=== PATIENT | male | born 1945 | race Caucasian/White ===

== ENCOUNTER 2016-05-13 09:07 | Inpatient (IN) | payer MEDICARE, OTHER ==
[2016-05-13] VITALS (12 sets, daily range): BP systolic 106–131; BP diastolic 69–77; PULSE 67–146; RESP 15–22; TEMP 97–98.1; O2SAT 94–98
[~2016-05-13] VITALS: Ht 177.8 cm; Wt 92.0 kg
[2016-05-13] MEDS ORDERED: SODIUM CHLOR 0.9% 1000 ML INJ 1,000 ML IV SCH (10:15)
[2016-05-13] MEDS ORDERED: ADENOSINE IV SOLN 3 MG/ML 2 ML VIAL IV PUSH ONE ×2 (10:15)
[2016-05-13] MEDS ORDERED: PERSERVISION AREDS (10:16)
[2016-05-13] MEDS ORDERED: AMLO1TAB35 PO (10:16)
[2016-05-13] MEDS ORDERED: LUMI0.01 EACH EYE (10:16)
[2016-05-13] MEDS ORDERED: CENTTAB PO (10:16)
[2016-05-13] MEDS ORDERED: COMB0.2S EACH EYE (10:16)
[2016-05-13] MEDS ORDERED: ASPI81CH CHEW (10:16)
[2016-05-13] MEDS ORDERED: FISH1000 (10:16)
[2016-05-13] MEDS ORDERED: AZOP1SUS EACH EYE (10:16)
[2016-05-13] MEDS ORDERED: PRESCAP5 PO (10:27)
[2016-05-13] MEDS ORDERED: DILTIAZEM INJ 125 MG in SODIUM CHLORIDE 0.9% INJ 100 ML IV SCH (10:30)
[2016-05-13] MEDS ORDERED: DILTIAZEM HCL 25 MG/5 ML VIAL IVP ONE (10:30)
--- NOTE | 2016-05-13 10:46 | RADRPT ---
EXAM DATE/TIME: 05/13/2016 10:38 [place] COMPARISON: No previous studies available for comparison. INDICATIONS : Tachycardia. MEDICAL HISTORY : Hypertension. Carcinoma, prostatic. SURGICAL HISTORY : None. ENCOUNTER: Initial ACUITY: 3 days PAIN SCORE: 0/10 LOCATION: Bilateral chest FINDINGS: A single view of the chest demonstrates the lungs to be symmetrically aerated without evidence of mas s, infiltrate or effusion. The cardiomediastinal contours are unremarkable. Osseous structures are intact. CONCLUSION: 1. No acute cardiopulmonary findings. Aiden Javier MD on May 13, 2016 at 10:40 Board Certified Radiologist. This report was verified electronically.
[2016-05-13 10:51] LABS: AUTOMATED NEUTROPHIL # 3.1 TH/MM3 (1.8-7.7); BASOPHIL # 0.1 TH/MM3 (0-0.2); BASOPHIL % 0.7 % (0.0-2.0); EOSINOPHIL # 0.3 TH/MM3 (0-0.4); EOSINOPHIL % 2.9 % (0.0-4.0); HEMATOCRIT 43.9 % (39.0-51.0); HEMO FLAGS DIFF FINAL; LYMPH % 51.1 % (9.0-44.0); LYMPHOCYTE # 4.6 TH/MM3 (1.0-4.8); MEAN CELL VOLUME 97.7 FL (80.0-100.0); MEAN CORPUSCULAR HEMOGLOBIN 32.9 PG (27.0-34.0); MEAN CORPUSCULAR HGB CONC 33.7 % (32.0-36.0); MONO % 11.3 % (0.0-8.0); PLATELET COUNT 201 TH/MM3 (150-450); RED BLOOD COUNT 4.49 MIL/MM3 (4.50-5.90); RED CELL DISTRIBUTION WIDTH 14.1 % (11.6-17.2)
[2016-05-13 10:58] LABS: PROTHROMBIN TIME - PATIENT 10.7 SEC (9.8-11.6)
[2016-05-13 10:59] LABS: APTT (PATIENT) 23.6 SEC (24.3-30.1)
--- NOTE | 2016-05-13 10:59 | PD ---
HPI Chief Complaint: Cardiac Complaint Time Seen by Provider: 09:52 Travel History International Travel<30 days: No Contact w/Intl Traveler<30days: No Traveled to known affect area: No History of Present Illness HPI 70-year-old male complains of fast heart rate. Patient states that he has increasing heart rate for the past 3 days. Patient denies any chest pain or shortness of breath. Patient denies any thyroid disease. Patient denies any excessive caffeine intake. Patient has history hypertension and glaucoma. Patient is on medication for them. Patient denies history of diabetes or dyslipidemia. Patient is a nonsmoker. PFSH Past Medical History Cancer: Yes (PROSTATE) Glaucoma: Yes Hypertension: Yes Tetanus Vaccination: > 5 Years Social History Alcohol Use: Yes (daily) Tobacco Use: No Substance Use: No Allergies-Medications (Allergen,Severity, Reaction): Coded Allergies: No Known Allergies (Unverified , 05/13/16) Reported Meds & Prescriptions Reported Meds & Active Scripts Active Reported Preservision Areds 2 (Multiple Vitamins W/ Minerals) 1 Cap 1 Cap PO BID Centrum Silver (Multiple Vitamins W/ Minerals) 1 Tab 1 Tab PO DAILY Aspirin 81 Mg Chew 81 Mg CHEW DAILY Fish Oil ([place]-3 Fatty Acids) 1,000 Mg Cap 4,000 Lumigan Opth Drops (Bimatoprost) 0.01% Soln 1 Drop EACH EYE HS Combigan Opth Drops (Brimonidine-Timolol Opth Drops) 0.2-0.5% Soln 1 Drop EACH EYE Q12HR Azopt Opth Drops (Brinzolamide) 1% Susp 1 Drop EACH EYE BID Amlodipine-Atorvastatin 5-10 Mg Tab 1 Tab PO DAILY Review of Systems General / Constitutional: No: Fever Eyes: No: Visual changes HENT: No: Headaches Cardiovascular: Positive: Tachycardia, No: Chest Pain or Discomfort Respiratory: No: Shortness of Breath Gastrointestinal: No: Abdominal Pain Genitourinary: No: Dysuria Musculoskeletal: No: Pain Skin: No Rash Neurologic: No: Weakness Psychiatric: No: Depression Endocrine: No: Polydipsia Hematologic/Lymphatic: No: Easy Bruising Physical Exam Narrative GENERAL: Well-nourished, well-developed patient. SKIN: Warm and dry. HEAD: Normocephalic. EYES: No scleral icterus. No injection or drainage. NECK: Supple, trachea midline. No JVD or lymphadenopathy. CARDIOVASCULAR: Tachycardia rate and rhythm without murmurs, gallops, or rubs. RESPIRATORY: Breath sounds equal bilaterally. No accessory muscle use. GASTROINTESTINAL: Abdomen soft, non-tender, nondistended. MUSCULOSKELETAL: No cyanosis, or edema. BACK: Nontender without obvious deformity. No CVA tenderness. Neurologic exam normal. Data Data Last Documented VS Vital Signs Date Time Temp Pulse Resp B/P Pulse Ox O2 Delivery O2 Flow Rate FiO2 05/13/16 11:34 98 05/13/16 09:09 98.1 146 15 131/74 Orders Electrocardiogram (05/13/16 ) Complete Blood Count With Diff (05/13/16 10:07) Basic Metabolic Panel (Bmp) (05/13/16 10:07) Creatine Kinase (Cpk) (05/13/16 10:07) Troponin I (05/13/16 10:07) Prothrombin Time / Inr (Pt) (05/13/16 10:07) Act Partial Throm Time (Ptt) (05/13/16 10:07) Thyroid Stimulating Hormone (05/13/16 10:07) Chest, Single Ap (05/13/16 10:07) Iv Access Insert/Monitor (05/13/16 10:07) Ecg Monitoring (05/13/16 10:07) Oximetry (05/13/16 10:07) Sodium Chlor 0.9% 1000 Ml Inj (Ns 1000 M (05/13/16 10:15) Adenosine Inj (Adenocard Inj) (05/13/16 10:15) Adenosine Inj (Adenocard Inj) (05/13/16 10:15) Vital Signs (Adult) Q15MX4,Q4H (05/13/16 10:27) Cardiac Rhythm UNIQUE.Q8H (05/13/16 10:27) ^ Notify Dr: Other (05/13/16 10:27) Diltiazem Inj (Cardizem Inj) (05/13/16 10:30) Diltiazem Inj (Cardizem Inj) (05/13/16 10:30) Electrocardiogram (05/13/16 ) Labs Laboratory Tests Test 05/13/16 10:15 White Blood Count 9.0 TH/MM3 Red Blood Count 4.49 MIL/MM3 Hemoglobin 14.8 GM/DL Hematocrit 43.9 % Mean Corpuscular Volume 97.7 FL Mean Corpuscular Hemoglobin 32.9 PG Mean Corpuscular Hemoglobin 33.7 % Concent Red Cell Distribution Width 14.1 % Platelet Count 201 TH/MM3 Mean Platelet Volume 8.3 FL Neutrophils (%) (Auto) 34.0 % Lymphocytes (%) (Auto) 51.1 % Monocytes (%) (Auto) 11.3 % Eosinophils (%) (Auto) 2.9 % Basophils (%) (Auto) 0.7 % Neutrophils # (Auto) 3.1 TH/MM3 Lymphocytes # (Auto) 4.6 TH/MM3 Monocytes # (Auto) 1.0 TH/MM3 Eosinophils # (Auto) 0.3 TH/MM3 Basophils # (Auto) 0.1 TH/MM3 CBC Comment DIFF FINAL Differential Comment Prothrombin Time 10.7 SEC Prothromb Time International 1.0 RATIO Ratio Activated Partial 23.6 SEC Thromboplast Time Sodium Level 141 MEQ/L Potassium Level 4.7 MEQ/L Chloride Level 110 MEQ/L Carbon Dioxide Level 24.4 MEQ/L Anion Gap 7 MEQ/L Blood Urea Nitrogen 18 MG/DL Creatinine 0.90 MG/DL Estimat Glomerular Filtration 83 ML/MIN Rate Random Glucose 111 MG/DL Calcium Level 9.0 MG/DL Total Creatine Kinase 132 U/L Troponin I 0.12 NG/ML Thyroid Stimulating Hormone 2.160 uIU/ML [address] [place] [address] Medical Decision Making Medical Screen Exam Complete: Yes Emergency Medical Condition: Yes Interpretation(s) EKG shows supraventricular tachycardia at rate 147. 11:53 AM. Repeat EKG showed atrial fibrillation. Last Impressions Chest X-Ray 05/13/16 1007 Signed Impressions: Service Date/Time: Friday, May 13, 2016 10:38 - CONCLUSION: 1. No acute cardiopulmonary findings. Aiden Javier MD 11:54 AM. CBC within normal limit. BMP within normal limit. Troponin 0.12. TSH normal. Differential Diagnosis Differential diagnosis including supraventricular tachycardia, atrial fibrillation, atrial flutter. Narrative Course 70-year-old male with tachycardia for 3 days. Adenosine 6 mg IV and adenosine 12 mg IV given without success. Normal saline solution 1 25 cc an hour. Cardizem 10 mg IV. Cardizem drip started. Repeat EKG show atrial fibrillation. Diagnosis Primary Impression: Atrial fibrillation with RVR Admitting Information Admitting Physician Requests: Admit Ren Sawyer MD May 13, 2016 10:59
[2016-05-13 11:12] LABS: BICARBONATE 24.4 MEQ/L (21.0-32.0)
[2016-05-13 11:13] LABS: POTASSIUM 4.7 MEQ/L (3.5-5.1)
--- NOTE | 2016-05-13 13:41 | HHI.HP ---
[facility] Service Family Medicine Primary Care Physician Non-Staff Admission Diagnosis new-onset atrial fibrillation with RVR Diagnoses: International Travel<30 Days: No Contact w/Intl Traveler<30days: No Known Affected Area: No History of Present Illness Patient is 70-year-old man with past medical history significant for hypertension and prostate cancer in remission who presents with racing heart for 3 days. Patient first noticed that he was in his usual state of health on Monday when he took his daily morning blood pressure, and noticed that his pulse was more rapid than usual, around 120-130 bpm rather than his usual 72-74 bpm. He denies any associated symptoms, including chest pain, shortness of breath, palpitations, but he reports that he felt a somehow different and was unable to describe how he felt different. He denies any recent illness or thyroid problems. He has never had anything like this before. He proceeded to play golf for the past 2 days prior to presentation. The night before presentation to the ED, he felt that his heart was racing, so he decided to come to the emergency department the following morning, where he was noted to have tachyarrhythmia. (Duane Meraz MD R1) Review of Systems Constitutional: DENIES: Diaphoretic episodes, Fatigue, Fever, Chills, Dizziness , Change in appetite, Night Sweats Endocrine: DENIES: Polydipsia, Polyuria Eyes: DENIES: Blurred vision, Diplopia, Vision loss, Double Vision Ears, nose, mouth, throat: DENIES: Hearing loss, Throat pain, Running Nose Respiratory: DENIES: Cough, Wheezing, Shortness of breath Cardiovascular: DENIES: Chest pain, Palpitations, Syncope, Dyspnea on Exertion , PND, Lower Extremity Edema, Orthopnea Gastrointestinal: DENIES: Abdominal pain, Black stools, Bloody stools, Constipation, Diarrhea, Nausea, Vomiting Genitourinary: DENIES: Dysuria Musculoskeletal: DENIES: Joint pain, Muscle aches, Back pain, Neck pain Integumentary: DENIES: Rash Neurologic: DENIES: Headache, Localized weakness, Paresthesias (Duane Meraz MD R1) Past Family Social History Past Medical History 2 years ago, patient was diagnosed with Prostate Cancer. Treated at [facility] in [place] with Palladium seeds and stereotactic radiation. Last PSA 0.6 HTN, HLD treated years ago. His PCP and application performance engineer was Dr. Elroy Mora. s/p right hip replacement, his bp went down. He was on losartan, but has not required this medication since surgery in October 2015. Now he's only on one blood pressure medication. Denies any history of CAD, ID, DM. Patient reports history of glaucoma controlled with eyedrop medications. Past Surgical History Right Hip replacement in October 2015. Left hip replacement 11 years ago. Reported Medications Reported Meds & Active Scripts Active Reported Preservision Areds 2 (Multiple Vitamins W/ Minerals) 1 Cap 1 Cap PO BID Centrum Silver (Multiple Vitamins W/ Minerals) 1 Tab 1 Tab PO DAILY Aspirin 81 Mg Chew 81 Mg CHEW DAILY Fish Oil ([place]-3 Fatty Acids) 1,000 Mg Cap 4,000 Lumigan Opth Drops (Bimatoprost) 0.01% Soln 1 Drop EACH EYE HS Combigan Opth Drops (Brimonidine-Timolol Opth Drops) 0.2-0.5% Soln 1 Drop EACH EYE Q12HR Azopt Opth Drops (Brinzolamide) 1% Susp 1 Drop EACH EYE BID Amlodipine-Atorvastatin 5-10 Mg Tab 1 Tab PO DAILY (Duane Meraz MD R1) Allergies: Coded Allergies: No Known Allergies (Unverified , 05/13/16) Active Ordered Medications Current Medications Medications (Trade) Dose Ordered Sig/Jose Juan Route Start Time Stop Time Status Last Admin (Cardizem Inj/NS Inj) 125 ml @ 0 mls/hr TITRATE IV 05/13/16 10:30 05/13/16 20:24 (Aspirin Chew) 81 mg DAILY CHEW 05/13/16 14:00 (NS Flush) 2 ml UNSCH PRN FLUSH 05/13/16 14:00 (NS Flush) 2 ml BID FLUSH 05/13/16 21:00 (Tylenol) 650 mg Q4H PRN PO 05/13/16 14:00 (Zofran Inj) 4 mg Q6H PRN IVP 05/13/16 14:00 (Narcan Inj) 0.4 mg UNSCH PRN IV 05/13/16 14:00 (Xalatan 0.005% Opth Soln) 1 drop HS EACH EYE 05/13/16 21:00 05/13/16 21:57 (Alphagan 0.2% Opth Soln) 1 drop Q12H EACH EYE 05/13/16 21:00 05/13/16 21:57 (Timoptic 0.5% Opth Soln) 1 drop Q12H EACH EYE 05/13/16 21:00 05/13/16 21:57 (Norvasc) 5 mg DAILY PO 05/14/16 09:00 (Lipitor) 10 mg DAILY PO 05/14/16 09:00 Patient Own Medication PT OWN MED: AZOPT 1% OP... Q12H EACH EYE 05/13/16 21:00 Hold (Cardizem) 30 mg QID PO 05/13/16 18:00 05/13/16 21:32 Family History Father had angina, of ID. Mother no health problems. at 92. 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 (Duane Meraz MD R1) Physical Exam Vital Signs Vital Signs Date Time Temp Pulse Resp B/P Pulse Ox O2 Delivery O2 Flow Rate FiO2 05/13/16 11:34 98 05/13/16 09:09 98.1 146 15 131/74 95 Physical Exam GENERAL: This is a well-nourished, well-developed patient, in no apparent distress. SKIN: No rashes, ecchymoses or lesions. Cool and dry. HEAD: Atraumatic. Normocephalic. EYES: Pupils equal round and reactive. Extraocular motions intact. + injection, but no drainage. ENT: Nose without bleeding, purulent drainage. Throat without erythema, tonsillar hypertrophy or exudate. Uvula midline. Airway patent. NECK: Trachea midline. No thyromegaly, JVD or lymphadenopathy. Supple, nontender , no meningeal signs. CARDIOVASCULAR: Regular rate and rhythm without murmurs, gallops, or rubs. RESPIRATORY: Clear to auscultation. Breath sounds equal bilaterally. No wheezes , rales, or rhonchi. GASTROINTESTINAL: Abdomen soft, non-tender, nondistended. No hepato-splenomegaly , or palpable masses. No guarding. MUSCULOSKELETAL: Extremities without clubbing, cyanosis, or edema. No joint tenderness, effusion, or edema noted. No calf tenderness. NEUROLOGICAL: Awake and alert. Cranial nerves II through XII grossly intact. Motor and sensory grossly within normal limits. Normal speech. Laboratory Laboratory Tests Test 05/13/16 10:15 White Blood Count 9.0 Red Blood Count 4.49 Hemoglobin 14.8 Hematocrit 43.9 Mean Corpuscular Volume 97.7 Mean Corpuscular Hemoglobin 32.9 Mean Corpuscular Hemoglobin 33.7 Concent Red Cell Distribution Width 14.1 Platelet Count 201 Mean Platelet Volume 8.3 Neutrophils (%) (Auto) 34.0 Lymphocytes (%) (Auto) 51.1 Monocytes (%) (Auto) 11.3 Eosinophils (%) (Auto) 2.9 Basophils (%) (Auto) 0.7 Neutrophils # (Auto) 3.1 Lymphocytes # (Auto) 4.6 Monocytes # (Auto) 1.0 Eosinophils # (Auto) 0.3 Basophils # (Auto) 0.1 CBC Comment DIFF FINAL Differential Comment Prothrombin Time 10.7 Prothromb Time International 1.0 Ratio Activated Partial 23.6 Thromboplast Time Sodium Level 141 Potassium Level 4.7 Chloride Level 110 Carbon Dioxide Level 24.4 Anion Gap 7 Blood Urea Nitrogen 18 Creatinine 0.90 Estimat Glomerular Filtration 83 Rate Random Glucose 111 Calcium Level 9.0 Total Creatine Kinase 132 Troponin I 0.12 Thyroid Stimulating Hormone 2.160 3rd Gen (Duane Meraz MD R1) Result Diagram: 05/13/16 1015 05/13/16 1015 Imaging Last Impressions Chest X-Ray 05/13/16 1007 Signed Impressions: Service Date/Time: Friday, May 13, 2016 10:38 - CONCLUSION: 1. No acute cardiopulmonary findings. Aiden Javier MD Course In emergency department, patient had EKG, chest x-ray, TSH, a PTT, PT/INR, troponin, CK, BMP, CBC, adenosine 12 mg IV 1, adenosine 6 mg IV 1, normal saline IV 1, diltiazem IV and IV drip, cardiology consult. (Duane Meraz MD R1) Assessment and Plan Assessment and Plan Patient is a 70-year-old man with a past history of hypertension controlled on medication and prostate cancer in remission who presents with new onset A. fib with RVR. Code Status Full code Discussed Condition With kulwant Elkins, Dr. Nolan (Duane Meraz MD R1) Attending Attestation The patient has been seen and examined. The chart and all resident notes have been reviewed. I agree that inpatient care is appropriate and that a two midnight stay is expected for the reasons documented in the resident history and physical. I have discussed this with the resident and certify the resident s order for inpatient admission. (Bernice Nolan MD) Problem List: (1) Atrial fibrillation with RVR Status: Acute Plan: Patient is a 70-year-old man with a past history of hypertension controlled on medication and prostate cancer in remission who presents with new onset A. fib with RVR. TRISTIAN VASC score of 1pt. Admit to inpatient ACS rule out with every 6 hours EKG, CK, troponin Echocardiogram Consult cardiology Nothing by mouth after midnight BMP, CBC every morning TSH wnl Diltiazem IV drip Transition to Diltiazem 30 mg by mouth 4 times a day Medical management of risk factors as below: Aspirin 81 mg chew by mouth daily manager sas/unit tender Vital signs Oxygen as needed PT consult (2) Glaucoma Status: Acute Plan: Patient with history of glaucoma stable on home medication. Continue home medications as below: Continue home eyedrops (3) HTN (hypertension) Status: Chronic Plan: Patient with hypertension controlled on medications. Converted home medications to our formulary as below: Hold Amlodipine 5 mg by mouth daily because we are starting Diltiazem and do not want to cause hypotension (4) HLD (hyperlipidemia) Status: Chronic Plan: Patient with hyperlipidemia stable on home medications. Reported home medications were formulary as below: Hold Atorvastatin 10 g by mouth daily (5) Nutrition, metabolism, and development symptoms Status: Acute Plan: Fluids: Maintenance fluids with Normal saline IV at 130 mL per hour Electrolytes: Monitor and replete as necessary Nutrition: Nothing by mouth after midnight GI prophylaxis: Not currently indicated (6) No contraindication to deep vein thrombosis (DVT) prophylaxis Status: Acute Plan: Anticoagulation per cardiology. Bilateral SCDs (Duane Meraz MD R1) Physician Certification 2 Midnight Certification Type: Admission for Inpatient Services Order for Inpatient Services The services are ordered in accordance with Medicare regulations or non- Medicare payer requirements, as applicable. In the case of services not specified as inpatient-only, they are appropriately provided as inpatient services in accordance with the 2-midnight benchmark. Estimated LOS (days): 2 2 days is the estimated time the patient will need to remain in the hospital, assuming treatment plan goals are met and no additional complications. Post-Hospital Plan: Not yet determined (Duane Meraz MD R1) Duane Meraz MD R1 May 13, 2016 13:41 Bernice Nolan MD May 17, 2016 12:32
[2016-05-13] MEDS ORDERED: ACETAMINOPHEN 325 MG TAB PO PRN (14:00)
[2016-05-13] MEDS ORDERED: ONDANSETRON HCL 4 MG/2 ML VIAL IVP PRN (14:00)
[2016-05-13] MEDS: ASPIRIN 81 MG CHEW TAB CHEW SCH (14:00)
[2016-05-13] MEDS ORDERED: NALOXONE HCL 0.4 MG/ML AMP IV PRN (14:00)
[2016-05-13] MEDS ORDERED: SODIUM CHLORIDE 0.9% FLUSH 5 ML FLUSH FLUSH PRN (14:00)
--- NOTE | 2016-05-13 16:48 | EKG ---
Date Performed: 05/13/2016 Time Performed: 09:17:55 PTAGE: 70 years EKG: SUPRAVENTRICULAR TACHYCARDIA ST DEVIATION AND MODERATE T-WAVE ABNORMALITY, CONSIDER INFERIO R ISCHEMIA ABNORMAL ECG NO PREVIOUS TRACING Clinical correlation strongly recommended. No prior tracing for stan melendrezeaston. DOCTOR: David Tang Interpretating Date/Time 05/13/2016 16:47:35
--- NOTE | 2016-05-13 16:56 | HHI.FPPN ---
Subjective Subjective Patient seen and examined. Case reviewed and discussed Please refer to resident H&P for further details regarding HPI, ROS, PMH, SurgHx , FH and SocHx In summary, patient is a 70yoM presenting with complaints of racing heart x 3 days He cannot recall any preceding chest pain, shortness of breath, recent illness. He has never had anything like this before. Initial ekg demonstrated SVT; patient was treated with adenosine x 2, then repeat ekg demonstrated afib. Patient has since been administed Cardizem IVP and placed on cardizem gtt. At the time of my encounter, patient is resting in bed, rate controlled to 80s. [facility] Objective Objective Last Impressions Chest X-Ray 05/13/16 1007 Signed Impressions: Service Date/Time: Friday, May 13, 2016 10:38 - CONCLUSION: 1. No acute cardiopulmonary findings. Aiden Javier MD Laboratory Tests - Abnormals Test 05/13/16 10:15 Red Blood Count 4.49 MIL/MM3 Lymphocytes (%) (Auto) 51.1 % Monocytes (%) (Auto) 11.3 % Monocytes # (Auto) 1.0 TH/MM3 Activated Partial 23.6 SEC Thromboplast Time Chloride Level 110 MEQ/L Estimat Glomerular Filtration 83 ML/MIN Rate Random Glucose 111 MG/DL Troponin I 0.12 NG/ML Vital Signs 05/13/16 05/13/16 05/13/16 05/13/16 09:09 11:34 13:45 15:54 Temp 98.1 98.0 Pulse 146 74 77 Resp 15 22 18 B/P 131/74 106/69 128/74 Pulse Ox 95 98 96 98 05/13/16 15:55 Pulse 86 Physical exam GENERAL: wdwn male, NAD, resting in bed, family at his bedside. SKIN: Warm and dry. No rashes HEAD: Normocephalic. AT EYES: No scleral icterus. No injection or drainage. ENT: OP clear. MMM NECK: Supple, trachea midline. No JVD or lymphadenopathy. CARDIOVASCULAR: Rate controlled in the 80s, irregular. without murmurs, gallops , or rubs. RESPIRATORY: Breath sounds equal and clear to auscultation bilaterally. No accessory muscle use. GASTROINTESTINAL: Abdomen soft, non-tender, nondistended. No rebound or guarding. MUSCULOSKELETAL: No cyanosis, or edema. No calf tenderness BACK: Nontender without obvious deformity. No CVA tenderness. NEURO: Awake and alert. Normal speech, CN grossly intact. Assessment Assessment 70yoM admitted with: New onset afib with RVR HTN HL Hx Prostate CA Elevated troponin PLAN PLAN Cardizem gtt 2D echo TSH Cardiology consultation -- appreciate expertise ACS r/o Resume home meds as appropriate Anti-platelet therapy Patient seen and examined. Case reviewed and discussed with resident team, patient, family Agree with plan of care as discussed with me and documented in the resident note. Bernice Nolan MD May 13, 2016 16:56
[2016-05-13] MEDS: DILTIAZEM HCL 30 MG TAB PO SCH ×2 (18:00→21:32)
--- NOTE | 2016-05-13 18:01 | MB ---
cc: HERRERA COLINDRES DO DATE OF CONSULTATION 05/13/16 REASON FOR CONSULTATION Atrial fibrillation with rapid ventricular response HISTORY OF PRESENT ILLNESS Carl Mayo is a pleasant 70 year old male who presents to [facility] emergency room on May 13, 2016 due to an elevated heart rate. He states that over the past two days he noticed that his heart rate was more elevated than usual, somewhere in the 120-130 range. He decided to wait it out. He played golf over the past few days and felt no different with no chest pain or shortness of breath. When he woke up today, his heart was still raising and he felt that he should come to the emergency room. On arrival, he was found to be in supraventricular tachycardiac with rapid ventricular response. Adenosine was given twice without breaking the rhythm. At that time, it was found that it was atrial fibrillation. He was given a bolus of Cardizem IV and started on a Cardizem drip. In seeing him at this time, he states that over the past week he has had no chest pain, shortness of breath, lightheadedness, dizziness but only palpitation. Currently, he is laying in bed on a Cardizem drip at 5 mg per hour. PAST MEDICAL HISTORY 1. Prostate cancer status post palladium seeds and stereotactic radiation. 2. Hypertension PAST SURGICAL HISTORY 1. Right hip replacement (October of 2015). 2. Left hip replacement (2005) ALLERGIES NO KNOWN DRUG ALLERGIES MEDICATIONS 1. Norvasc/atorvastatin 5/10 mg one tab daily 2. Aspirin 81 mg daily 3. Combigan one drop each eye every 12 hours 4. Azopt one drop each eye twice a day 5. Newport 3 fatty acid fish oil 4000 mg daily 6. Lumigan one drip each eye every night SOCIAL HISTORY Denies tobacco, alcohol or drug abuse. FAMILY HISTORY Father from an myocardial infarction. Mother at the age of 92 from old age. REVIEW OF SYSTEMS 14 systems were reviewed including osteopathic. Pertinent positives and negatives above, otherwise, negative. PHYSICAL EXAMINATION VITAL SIGNS: Temperature 98.2, heart rate 86, blood pressure 128/74, respirations 18, pulse ox 98% on room air. GENERAL: The patient appears well in no acute distress, alert, awake and oriented times three. HEENT: Extraocular muscles intact. Moist mucous membranes. NECK: Supple. No JVD at 45 degrees. No carotid bruits heard bilaterally. Carotid upstroke is brisk in nature. HEART: Irregularly irregular, positive first and second heart sounds but no murmurs, rubs or gallops. PMI is nondisplaced. LUNGS: Clear to auscultation bilaterally. No wheezing, rales or rhonchi. ABDOMEN: Soft, nontender, nondistended. No organomegaly noted. EXTREMITIES: No cyanosis, clubbing or edema. Femoral and distal pulses are intact bilaterally. NEUROLOGIC: No focal deficits. SKIN: Warm, dry and intact. OSTEOPATHIC: No kyphoscoliosis, lordosis or paraspinal tender points. LABORATORY DATA Hemoglobin 14.8, hematocrit 43.9, platelets 201. Potassium 4.7, BUN 18, creatinine 0.9. Troponin 0.12. TSH 2.16 CARDIOLOGY STUDIES Electrocardiogram (May 13, 2016 at 09:17) supraventricular tachycardiac probably atrial fibrillation with rapid ventricular response, mild ST-T wave changes. IMPRESSION 1. New onset atrial fibrillation with rapid ventricular response. 2. History of hypertension 3. History of hyperlipidemia 4. History of prostate cancer 5. Minimally elevated troponin of 0.12. RECOMMENDATIONS 1. Mr. Mayo appears to have had an episode of new onset atrial fibrillation. He has since been placed on a Cardizem drip which has controlled his heart rate. I will attempt to transition this to Cardizem by mouth with 30 mg every 6 hours. This may need to be titrated up for further heart rate control. 2. We will continue to check troponins to see if they continue to elevate. My initial impression is that the elevated troponin that he has is most likely due to a heart rate around 150 beats per minute. Depending on the results of the troponin, I believe that he should undergo an ischemic evaluation, whether that be cardiac catheterization versus pharmacologic nuclear stress testing. 3. I did speak to him about anticoagulation and he states that he is willing to start it. After decisions are made about cardiac catheterization versus stress testing, he will most likely go on Eliquis 5 mg twice a day. 4. By starting him on Cardizem, we may need to back down on some of his antihypertensive medications. Thank you for allowing me to see Carl Mayo. If there are questions, please do not hesitate to call. Herrera Colindres DO VGP/SA /5:21 PM /5:33 PM
[2016-05-13] MEDS ORDERED: AZOPT 1% EACH EYE SCH (21:00)
[2016-05-13] MEDS ORDERED: LATANOPROST 0.005% OPHT SOLN 2.5 ML BTL EACH EYE SCH (21:00)
[2016-05-13] MEDS ORDERED: NON-FORMULARY DRUG (Bimatoprost Opth Drops (Lumigan Opth Drops) 1 DROP) EACH EYE SCH (21:00)
[2016-05-13] MEDS ORDERED: NON-FORMULARY DRUG (Brimonidine-Timolol Opth Drops (Combigan Opth Drops) 1 DROP) EACH EYE SCH (21:00)
[2016-05-13] MEDS: SODIUM CHLORIDE 0.9% FLUSH 5 ML FLUSH FLUSH SCH (21:00)
[2016-05-13] MEDS ORDERED: NON-FORMULARY DRUG (Brinzolamide Opth Drops (Azopt Opth Drops) 1 DROP) EACH EYE SCH (21:00)
[2016-05-13] MEDS: BRIMONIDINE TARTRATE 0.2% OPHT SOLN 5 ML BTL EACH EYE SCH (21:57)
[2016-05-13] MEDS: TIMOLOL MALEATE 0.5% OPHT SOLN 5 ML BTL EACH EYE SCH (21:57)
[2016-05-14] VITALS (15 sets, daily range): BP systolic 101–118; BP diastolic 69–71; PULSE 58–88; RESP 18; TEMP 97.6–98; O2SAT 97–98
[2016-05-14] MEDS ORDERED: SODIUM CHLOR 0.9% 1000 ML INJ 1,000 ML IV SCH (04:07)
[2016-05-14] MEDS: SODIUM CHLORIDE 0.9% FLUSH 5 ML FLUSH FLUSH SCH (07:49)
[2016-05-14 08:23] LABS: BICARBONATE 27.4 MEQ/L (21.0-32.0); POTASSIUM 4.3 MEQ/L (3.5-5.1)
[2016-05-14] MEDS: TIMOLOL MALEATE 0.5% OPHT SOLN 5 ML BTL EACH EYE SCH (08:29)
[2016-05-14] MEDS: DILTIAZEM HCL 30 MG TAB PO SCH (08:29)
[2016-05-14] MEDS: ASPIRIN 81 MG CHEW TAB CHEW SCH (08:29)
[2016-05-14] MEDS: BRIMONIDINE TARTRATE 0.2% OPHT SOLN 5 ML BTL EACH EYE SCH (08:30)
[2016-05-14] MEDS ORDERED: ATORVASTATIN 10 MG TAB PO SCH (09:00)
[2016-05-14] MEDS ORDERED: NON-FORMULARY DRUG (Amlodipine-Atorvastatin 1 TAB) PO SCH (09:00)
[2016-05-14] MEDS ORDERED: amLODIPine BESYLATE 5 MG TAB PO SCH (09:00)
--- NOTE | 2016-05-14 10:16 | PD.CARD.PN ---
Subjective Subjective Remarks Doing well, no chest pain, no shortness of breath Objective Medications Current Medications Medications (Trade) Dose Ordered Sig/Jose Juan Route Start Time Stop Time Status Last Admin (Cardizem Inj/NS Inj) 125 ml @ 0 mls/hr TITRATE IV 05/13/16 10:30 05/13/16 20:24 (Aspirin Chew) 81 mg DAILY CHEW 05/13/16 14:00 05/14/16 08:29 (NS Flush) 2 ml UNSCH PRN FLUSH 05/13/16 14:00 (NS Flush) 2 ml BID FLUSH 05/13/16 21:00 (Tylenol) 650 mg Q4H PRN PO 05/13/16 14:00 (Zofran Inj) 4 mg Q6H PRN IVP 05/13/16 14:00 (Narcan Inj) 0.4 mg UNSCH PRN IV 05/13/16 14:00 (Xalatan 0.005% Opth Soln) 1 drop HS EACH EYE 05/13/16 21:00 05/13/16 21:57 (Alphagan 0.2% Opth Soln) 1 drop Q12H EACH EYE 05/13/16 21:00 05/14/16 08:30 (Timoptic 0.5% Opth Soln) 1 drop Q12H EACH EYE 05/13/16 21:00 05/14/16 08:29 (Norvasc) 5 mg DAILY PO 05/14/16 09:00 05/14/16 08:29 (Lipitor) 10 mg DAILY PO 05/14/16 09:00 05/14/16 08:28 Patient Own Medication PT OWN MED: AZOPT 1% OP... Q12H EACH EYE 05/13/16 21:00 Hold Diltiazem HCl 30 mg 30 mg QID PO 05/13/16 18:00 05/14/16 08:29 (NS 1000 ml Inj) 1,000 ml @ 130 mls/hr Q7H42M IV 05/14/16 04:07 05/14/16 05:44 Vital Signs / I&O Vital Signs Date Time Temp Pulse Resp B/P Pulse Ox O2 Delivery O2 Flow Rate FiO2 05/14/16 10:07 58 05/14/16 09:23 59 05/14/16 08:36 98.0 78 18 101/69 98 2/18/17 08:09 70 05/14/16 07:47 70 05/14/16 06:00 62 05/14/16 05:00 64 05/14/16 04:17 62 18 116/71 97 05/14/16 04:00 60 05/14/16 03:00 65 05/14/16 02:00 68 05/14/16 01:00 64 05/14/16 00:00 62 05/13/16 23:40 97 05/13/16 23:00 67 18 114/77 94 05/13/16 23:00 86 05/13/16 22:00 68 05/13/16 21:00 72 05/13/16 20:00 74 05/13/16 19:00 98.0 83 18 124/72 96 05/13/16 19:00 81 05/13/16 17:57 97.0 73 18 128/74 98 05/13/16 15:55 86 05/13/16 15:54 98.0 77 18 128/74 98 05/13/16 13:45 74 22 106/69 96 05/13/16 11:34 98 I/O 05/13/16 05/13/16 05/13/16 05/14/16 05/14/16 05/14/16 07:00 15:00 23:00 07:00 15:00 23:00 Intake Total 370 ml 560 ml Output Total 300 ml Balance 70 ml 560 ml Intake Oral 360 ml 500 ml IV Total 10 ml 60 ml Output Urine Total 300 ml # Voids 2 # Bowel Movements 0 Physical Exam GENERAL: NAD, AAOx3 SKIN: Warm and dry. HEAD: Atraumatic. Normocephalic. EYES: Pupils equal and round. No scleral icterus. No injection or drainage. ENT: No nasal bleeding or discharge. Mucous membranes pink and moist. NECK: Trachea midline. No JVD. CARDIOVASCULAR: Regular rate and rhythm. RESPIRATORY: No accessory muscle use. Clear to auscultation. Breath sounds equal bilaterally. GASTROINTESTINAL: Abdomen soft, non-tender, nondistended. Hepatic and splenic margins not palpable. MUSCULOSKELETAL: Extremities without clubbing, cyanosis, or edema. No obvious deformities. NEUROLOGICAL: Awake and alert. No obvious cranial nerve deficits. Motor grossly within normal limits. Five out of 5 muscle strength in the arms and legs. Normal speech. PSYCHIATRIC: Appropriate mood and affect; insight and judgment normal. Laboratory Laboratory Tests Test 05/13/16 05/13/16 05/13/16 05/14/16 10:15 16:53 23:38 07:23 White Blood Count 9.0 TH/MM3 Red Blood Count 4.49 MIL/MM3 Hemoglobin 14.8 GM/DL Hematocrit 43.9 % Mean Corpuscular Volume 97.7 FL Mean Corpuscular Hemoglobin 32.9 PG Mean Corpuscular Hemoglobin 33.7 % Concent Red Cell Distribution Width 14.1 % Platelet Count 201 TH/MM3 Mean Platelet Volume 8.3 FL Neutrophils (%) (Auto) 34.0 % Lymphocytes (%) (Auto) 51.1 % Monocytes (%) (Auto) 11.3 % Eosinophils (%) (Auto) 2.9 % Basophils (%) (Auto) 0.7 % Neutrophils # (Auto) 3.1 TH/MM3 Lymphocytes # (Auto) 4.6 TH/MM3 Monocytes # (Auto) 1.0 TH/MM3 Eosinophils # (Auto) 0.3 TH/MM3 Basophils # (Auto) 0.1 TH/MM3 CBC Comment DIFF FINAL Differential Comment Prothrombin Time 10.7 SEC Prothromb Time International 1.0 RATIO Ratio Activated Partial 23.6 SEC Thromboplast Time Sodium Level 141 MEQ/L 144 MEQ/L Potassium Level 4.7 MEQ/L 4.3 MEQ/L Chloride Level 110 MEQ/L 111 MEQ/L Carbon Dioxide Level 24.4 MEQ/L 27.4 MEQ/L Anion Gap 7 MEQ/L 6 MEQ/L Blood Urea Nitrogen 18 MG/DL 13 MG/DL Creatinine 0.90 MG/DL 0.85 MG/DL Estimat Glomerular Filtration 83 ML/MIN 89 ML/MIN Rate Random Glucose 111 MG/DL 104 MG/DL Calcium Level 9.0 MG/DL 8.5 MG/DL Total Creatine Kinase 132 U/L 78 U/L 74 U/L Troponin I 0.12 NG/ML 0.13 NG/ML 0.11 NG/ML Thyroid Stimulating Hormone 2.160 uIU/ML 3rd Gen Assessment and Plan Problem List: (1) Atrial fibrillation with RVR (2) HLD (hyperlipidemia) (3) HTN (hypertension) Assessment and Plan 1) Afib with RVR, converted to NSR by himself 2) Wean Cardizem drip off, started on PO... if heart rate stable can discharge on Cardizem XR 3) Pharmacologic nuclear stress test today If positive will plan on cardiac catheterization on Monday If negative, and heart rate controlled off Cardizem drip can be discharged on Cardizem/Eliquis 4) Scripts left for Cardizem and Eliquis if discharged today Herrera Molina DO May 14, 2016 10:16
--- NOTE | 2016-05-14 10:46 | HHI.FPPN ---
Subjective Remarks No acute events overnight. Vital signs remained stable. Patient denies any chest pain, shortness of breath, heart palpitations, or calf pain. He does endorse "a little congestion." He denies any runny nose, cough, fevers, or recent cold symptoms. He scheduled to undergo a stress test this morning. Discussed with prep person, if stress test is reassuring, the patient is cleared to be discharged to home. If positive findings on stress test, patient will require catheterization on Monday. (Benjamin Metz MD R3) Objective Vitals Vital Signs Date Time Temp Pulse Resp B/P Pulse Ox O2 Delivery O2 Flow Rate FiO2 05/14/16 10:07 58 05/14/16 09:23 59 05/14/16 08:36 98.0 78 18 101/69 98 05/14/16 08:09 70 05/14/16 07:47 70 05/14/16 06:00 62 05/14/16 05:00 64 05/14/16 04:17 62 18 116/71 97 05/14/16 04:00 60 05/14/16 03:00 65 05/14/16 02:00 68 05/14/16 01:00 64 05/14/16 00:00 62 05/13/16 23:40 97 05/13/16 23:00 67 18 114/77 94 05/13/16 23:00 86 05/13/16 22:00 68 05/13/16 21:00 72 05/13/16 20:00 74 05/13/16 19:00 98.0 83 18 124/72 96 05/13/16 19:00 81 05/13/16 17:57 97.0 73 18 128/74 98 05/13/16 15:55 86 05/13/16 15:54 98.0 77 18 128/74 98 05/13/16 13:45 74 22 106/69 96 05/13/16 11:34 98 I/O 05/13/16 05/13/16 05/13/16 05/14/16 05/14/16 05/14/16 07:00 15:00 23:00 07:00 15:00 23:00 Intake Total 370 ml 560 ml Output Total 300 ml Balance 70 ml 560 ml Intake Oral 360 ml 500 ml IV Total 10 ml 60 ml Output Urine Total 300 ml # Voids 2 # Bowel Movements 0 (Benjamin Metz MD R3) Result Diagram: 05/13/16 1015 05/14/16 0723 Objective Remarks GENERAL: white male, NAD, resting in bed, pleasant SKIN: Warm and dry. No rashes HEAD: Normocephalic. AT EYES: No scleral icterus. No injection or drainage. ENT: OP clear. MMM CARDIOVASCULAR: Rate controlled in the 80s, irregular. without murmurs, gallops , or rubs. RESPIRATORY: Breath sounds equal and clear to auscultation bilaterally. No accessory muscle use. GASTROINTESTINAL: Abdomen soft, non-tender, nondistended. No rebound or guarding. MUSCULOSKELETAL: No cyanosis, or edema. No calf tenderness. MAEWD. NEURO: Awake and alert. Normal speech, CN grossly intact. (Benjamin Metz MD R3 ) A/P Assessment and Plan Patient is a 70-year-old man with a past history of hypertension presents with new onset A. fib with RVR. Discharge Planning Pending stress test, if reassuring, anticipate discharge to home today. (Benjamin Metz MD R3) Attending Attestation Patient seen and examined with the resident team. Case reviewed and discussed Agree with plan of care as discussed with me and documented in the resident note. (Bernice Nolan MD) Problem List: (1) Atrial fibrillation with RVR Status: Acute Plan: New onset A. fib with RVR. CHAD2 VASC score of 2. s/p Cardizem drip. Currently on Cardizem 30mg PO QID. Mild trop leak trended (0.12,0.13,0.11), likely d/t demand ischemia. We'll proceed with following plan: * Cardiology following, Dr. Molina- thank you for rec's * Transition to PO Cardizem 30mg q6hrs -> 120mg ER at discharge * Stress test pending * Stress test reassuring, anticipate discharge to home on long-acting Cardizem and anticoagulation with Eliquis * If stress test shows abnormal findings, anticipate cardiac catheterization this Tuesday 05/16 * Echocardiogram pending * Medical management of risk factors as below (2) Glaucoma Status: Acute Plan: Patient with history of glaucoma stable on home medication. Continue home medications as below: Continue home eyedrops (3) HTN (hypertension) Status: Chronic Plan: Patient with hypertension controlled on medications. Converted home medications to our formulary as below: Holding home amlodipine 5 mg daily due to Cardizem, blood pressures have remained within normal limits (4) HLD (hyperlipidemia) Status: Chronic Plan: Patient with hyperlipidemia stable on home medications. Reported home medications were formulary as below: Hold Atorvastatin 10 g by mouth daily (5) Nutrition, metabolism, and development symptoms Status: Acute Plan: Fluids: HLIV Electrolytes: Monitor and replete as necessary Nutrition: Health healthy diet following stress GI prophylaxis: Not currently indicated (6) No contraindication to deep vein thrombosis (DVT) prophylaxis Status: Acute Plan: Begin therapeutic anticoagulation following stress test. Bilateral SCDs (Benjamin Metz MD R3) Benjamin Metz MD R3 May 14, 2016 10:46 Bernice Nolan MD May 17, 2016 12:32
[2016-05-14 11:49] LABS: AUTOMATED NEUTROPHIL # 3.1 TH/MM3 (1.8-7.7); BASOPHIL % 0.7 % (0.0-2.0); EOSINOPHIL # 0.1 TH/MM3 (0-0.4); EOSINOPHIL % 2.1 % (0.0-4.0); HEMATOCRIT 41.7 % (39.0-51.0); HEMO FLAGS DIFF FINAL; LYMPH % 40.4 % (9.0-44.0); LYMPHOCYTE # 2.7 TH/MM3 (1.0-4.8); MEAN CELL VOLUME 98.6 FL (80.0-100.0); MEAN CORPUSCULAR HEMOGLOBIN 33.2 PG (27.0-34.0); MEAN CORPUSCULAR HGB CONC 33.6 % (32.0-36.0); MONO % 9.7 % (0.0-8.0); NEUT % 47.1 % (16.0-70.0); PLATELET COUNT 167 TH/MM3 (150-450); RED BLOOD COUNT 4.23 MIL/MM3 (4.50-5.90); RED CELL DISTRIBUTION WIDTH 14.5 % (11.6-17.2); WHITE BLOOD COUNT 6.6 TH/MM3 (4.0-11.0)
[2016-05-14] MEDS ORDERED: REGADENOSON INJ 0.4 MG/5 ML SYR ONE (13:50)
[2016-05-14] MEDS ORDERED: DILTIAZEM HCL 30 MG TAB PO SCH (14:00)
--- NOTE | 2016-05-14 14:14 | EC ---
Study Study Date:05/14/2016 STUDY CONCLUSIONS SUMMARY - Left ventricle: The cavity size was normal. Wall thickness was normal. Systolic function was normal. The estimated ejection fraction was in the range of 50% to 55%. Wall motion was normal; there were no regional wall motion abnormalities. The study is not technically sufficient to allow evaluation of LV diastolic function. - Mitral valve: Mild regurgitation. - Pulmonary arteries: PA peak pressure: 44mm Hg (S). If LV function is below 40, please consider prescribing an ACEI or ARB or document rationale for non-use. PROCEDURE DATA STUDY STATUS: Elective. Procedure: Transthoracic echocardiography. Image quality was good. Scanning was performed from the parasternal, apical, and subcostal acoustic windows. Study completion: The patient tolerated the procedure well. Transthoracic echocardiography. M-mode, complete 2D, complete spectral Doppler, and color Doppler. Patient status: Inpatient. CARDIAC ANATOMY LEFT VENTRICLE: The cavity size was normal. Wall thickness was normal. Systolic function was normal. The estimated ejection fraction was in the range of 50% to 55%. Wall motion was normal; there were no regional wall motion abnormalities. The study is not technically sufficient to allow evaluation of LV diastolic function. AORTIC VALVE: Trileaflet; normal thickness leaflets. Doppler: Transvalvular velocity was within the normal range. There was no stenosis. No regurgitation. AORTA: Aortic root: The aortic root was normal in size. MITRAL VALVE: Structurally normal valve. Doppler: Transvalvular velocity was within the normal range. There was no evidence for stenosis. Mild regurgitation. Peak gradient: 2mm Hg (D). LEFT ATRIUM: The atrium was normal in size. RIGHT VENTRICLE: The cavity size was normal. Wall thickness was normal. Systolic pressure was within the normal range. PULMONIC VALVE: Doppler: Transvalvular velocity was within the normal range. There was no evidence for stenosis. No regurgitation. TRICUSPID VALVE: Structurally normal valve. Doppler: Transvalvular velocity was within the normal range. Trace regurgitation. PULMONARY ARTERY: The main pulmonary artery was normal-sized. Systolic pressure was within the normal range. RIGHT ATRIUM: The atrium was normal in size. PERICARDIUM: There was no pericardial effusion. SYSTEMIC VEINS: Inferior vena cava: The vessel was normal in size. BASIC MEASUREMENTS ADULT Normal Left ventricle LV internal dimension, ED, chordal level, 50.9 mm 43-52 PLAX LV internal dimension, ES, chordal level, *39.2 mm 23-38 PLAX Fractional shortening, chordal level, PLAX *23 % >29 LV posterior wall thickness, ED 8.61 mm IVS/LVPW ratio, ED 1.08 <1.3 Ventricular septum Septal thickness, ED 9.26 mm Aortic valve Leaflet separation 23 mm 15-26 Left atrium Anterior-posterior dimension 34 mm Right ventricle RV internal dimension, ED, PLAX 20.7 mm 19-38 BASIC MEASUREMENTS ADULT Normal Aortic valve Leaflet separation 23 mm 15-26 Aorta Root diameter, ED *38 mm 20-37 DOPPLER MEASUREMENTS ADULT Normal Main pulmonary artery Pressure, S *44 mm Hg =30 Mitral valve Peak E-wave velocity 78.4 cm/s Peak A-wave velocity 42.4 cm/s Peak gradient, D 2 mm Hg Peak E/A ratio 1.8 Maximal regurgitant velocity 452 cm/s Tricuspid valve Regurgitant peak velocity 263 cm/s Peak RV-RA gradient, S 28 mm Hg Maximal regurgitant velocity 263 cm/s Systemic veins Estimated CVP 10 mm Hg Right ventricle RV pressure, S *44 mm Hg <30 LEGEND: Mean values are shown as u=mean value. Asterisk (*) echols values outside specified normal range. Prepared and signed by David Carlson [id number]
--- NOTE | 2016-05-14 15:08 | EKG ---
Date Performed: 05/13/2016 Time Performed: 11:51:08 PTAGE: 70 years EKG: ATRIAL FIBRILLATION NONSPECIFIC T-WAVE ABNORMALITY Compared to previous tracing, the atrial flutter has converted to atrial fibrillation. There is a good bit of baseline artifact present. ABNO RMAL RHYTHM ECG PREVIOUS TRACING : 05/13/2016 09.17 DOCTOR: Gabe Rodriguez Interpretating Date/Time 05/14/2016 15:07:40
--- NOTE | 2016-05-14 15:10 | EKG ---
Date Performed: 05/13/2016 Time Performed: 18:10:18 PTAGE: 70 years EKG: Sinus rhythm with PAC(s). Nonspecific ST-T change Compared to previous tracing, the rhythm has converted from atr ial fibrillation to sinus rhythm Abnormal ECG PREVIOUS TRACING : 05/13/2016 11.51 DOCTOR: Gabe Rodriguez Interpretating Date/Time 05/14/2016 15:08:38
--- NOTE | 2016-05-14 15:10 | EKG ---
Date Performed: 05/13/2016 Time Performed: 22:10:02 PTAGE: 70 years EKG: Sinus rhythm with PAC(s) Nonspecific ST-T changes Compared to prior tracing no significant change Abnormal ECG PREVIOUS TRACING : 05/13/2016 18.10 DOCTOR: Gabe Rodriguez Interpretating Date/Time 05/14/2016 15:09:28
--- NOTE | 2016-05-14 15:21 | RADRPT ---
EXAM DATE/TIME: 05/14/2016 13:23 [facility] COMPARISON: No previous studies available for comparison. INDICATIONS : Heart racing with mild chest pressure for one day. Atrial fibrillation. DOSE: 26.5 mCi Tc99m Myoview at stress. 8.7 mCi Tc99m Myoview at rest. 0.4 mg Lexiscan STRESS SYMPTOMS: Shortness of breath. EJECTION FRACTION: 64% MEDICAL HISTORY : Hypertension. Carcinoma, prostate. SURGICAL HISTORY : Right and left hip. ENCOUNTER: Initial ACUITY: 1 day PAIN SCALE: 2/10 LOCATION: Midsternal chest TECHNIQUE: The patient underwent pharmacologic stress with infusion of prescribed dose. Continuous ECG tracing was monitored during stress. Gated SPECT imaging was performed after stress and conventional SPECT i maging was performed at rest. The examination was performed on a SPECT/CT scanner, both attenuation and non-corrected datasets were reviewed. FINDINGS: DISTRIBUTION: The maximum perfused segment at stress is in the anterior wall. PERFUSION STUDY: The pattern of perfusion at stress is within normal limits. GATED STUDY: There is intact wall motion and thickening without hypokinetic or dyskinetic segments. CONCLUSION: 1. No significant reversibility to suggest ischemia. 2. Normal motion with ejection fraction 64%. RISK CATEGORY: Low (<1% Annual Mortality Rate) Elroy Newberry MD on May 14, 2016 at 15:16 Board Certified Radiologist. This report was verified electronically.
[2016-05-14] MEDS ORDERED: CARD120C4 PO ×2 (15:51→17:08)
[2016-05-14] MEDS ORDERED: APIX5TAB PO ×2 (15:51→17:08)
--- NOTE | 2016-05-14 15:52 | HHI.DCPOC ---
Discharge Care Plan Diagnosis: (1) Atrial fibrillation with RVR Goals to Promote Your Health * To prevent worsening of your condition and complications, please take medications as prescribed. * To maintain your health at the optimal level, please follow up with your primary care doctor and establish with a local primary care doctor. Directions to Meet Your Goals Take your medications as prescribed Follow your dietary instruction Follow activity as directed Keep your appointments as scheduled Take your immunizations and boosters as scheduled If your symptoms worsen call your PCP, if no PCP go to Urgent Care Center or Emergency Room Smoking is Dangerous to Your Health. Avoid second hand smoke Call the 24-hour hour crisis hotline for domestic abuse at Duane Meraz MD R1 May 14, 2016 15:52
[2016-05-14] MEDS ORDERED: LIPI10TA PO (15:55)
[2016-05-14] MEDS ORDERED: ATOR10TA15 PO ×2 (15:58→16:04)
== END 2016-05-14 17:15 | disposition home or self-care (01) | DRG 309 ==
LOC: NEPC 09:07 → NEDA 12:52 → OBSVTOIN 13:53 → HCIN 14:41
PROVIDERS: ADMIT Family Medicine; ATTEND Family Medicine
DX: I48.91 Unspecified atrial fibrillation (principal); I24.8 Other forms of acute ischemic heart disease; I10 Essential (primary) hypertension; H40.9 Unspecified glaucoma; I47.1 Supraventricular tachycardia; E78.5 Hyperlipidemia, unspecified; Z82.49 Family history of ischemic heart disease and other diseases of the circulatory system; Z85.46 Personal history of malignant neoplasm of prostate; Z92.3 Personal history of irradiation; Z96.643 Presence of artificial hip joint, bilateral
CPT/HCPCS: 71010; 78452; 80048; 82550; 84443; 84484; 85025; 85610; 85730; 93005; 93017; 93306; 96374; 96375; A9502; J0153; J2785; J7030